=== PATIENT | male | born 1995 | race Asian ===

== ENCOUNTER 2023-06-06 19:30 | Emergency (ER) | payer SELFPAY ==
[~2023-06-06] VITALS: Ht 185.4 cm; Wt 70.0 kg
[2023-06-06 19:34] VITALS: O2SAT 99
[2023-06-06 20:14] VITALS: BP 115/78; PULSE 84; RESP 18; TEMP 96.4
== END 2023-06-06 20:16 | disposition home or self-care (01) ==
LOC: ER 19:30
DX: R55 Syncope and collapse (principal); F10.129 Alcohol abuse with intoxication, unspecified; Y90.0 Blood alcohol level of less than 20 mg/100 ml
CPT/HCPCS: 99283